=== PATIENT | male | born 1955 | race Caucasian/White ===

== ENCOUNTER 2016-10-17 11:53 | Emergency (ER) | payer OTHER ==
[2016-10-17] MEDS ORDERED: Ondansetron INJ* 2 MG/ML VIAL IV ONE (13:07)
[2016-10-17] MEDS ORDERED: Morphine INJ* 4 MG/ML 1 ML CARPUJECT IV ONE ×2 (13:07→15:16)
--- NOTE | 2016-10-17 13:12 | ED ---
kelly Jeffers Timothy, scribed for Heydi Linda MD on 10/17/16 at 1243 . Head Injury - HPI Summary HPI Summary: Murray Gamino is a 61 yo male [facility]P trauma to the right side of face and head by a dominguez at 1100 this morning, causing 8/10 pain. He was brought in by private vehicle. Pt states he felt a little dizziy with he first stood up - states he thinks he "blacked out" briefly (< 5 sec) but states he remembers the entire event. He has a laceration on his jaw and scalp laceration. Pt reports mild and neck pain. 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 No blood HEENT. He bit his tongue at the time of injury. Pt was able to get up, walk, and get hinmself cleaned up. He states he feels "woozy" and disoriented but feels bettery lying down. He states he felt dizzy and SOB in the waiting room, but these symptoms have spontaneously resolved. His tetanus is UTD. He denies being immunocompromised. He does not smoke tobacco, but drinks EtOH occasionally , not today. He does not use any other drugs. He is allergic to shellfish and seafood, with SOB and tongue swelling. His last meal was approximately 4 hours ago His Hx includes hypothyroidism and HTN, both of which he takes medication for. - History Of Current Complaint Chief Complaint: EDHeadInjury Stated Complaint: CHIN LAC Time Seen by Provider: 10/17/16 13:00 Hx Obtained From: Patient Mechanism Of Injury: Blunt Trauma, Fall From Height Of: - 2 feet Onset/Duration: Started Hours Ago, Still Present Onset of Pain: Immediate Severity Currently: Moderate Severity Initially: Moderate Pain Intensity: 8 Pain Scale Used: 0-10 Numeric Location: Discrete At: - right side Aggravating Factor(s): Movement Associated Signs And Symptoms: LOC (Time In Secs./Mins/Hrs) - 5 seconds, Confusion - "disoriented", Neck Pain, Headache - Allergies/Home Medications Allergies/Adverse Reactions: Allergies Allergy/AdvReac Type Severity Reaction Status Date / Time Shellfish Allergy Allergy Anaphylatic Verified 10/17/16 13:33 Shock Home Medications: Home Medications Levothyroxine TAB* [Synthroid TAB*] 25 mcg PO DAILY 10/17/16 [History Confirmed 10/17/16] Levothyroxine TAB* [Synthroid TAB*] 50 mcg PO DAILY 10/17/16 [History Confirmed 10/17/16] Losartan TAB* [Cozaar TAB*] 100 mg PO DAILY 10/17/16 [History Confirmed 10/17/16 ] PMH/Surg Hx/FS Hx/Imm Hx Endocrine/Hematology History: Reports: Hx Thyroid Disease - hypothyroidism Cardiovascular History: Reports: Hx Hypertension Infectious Disease History: No Infectious Disease History: Denies: Traveled Outside the [place] in Last 30 Days - Family History Known Family History: Positive: Cardiac Disease, Hypertension, Diabetes - Social History Occupation: Employed Full-time Alcohol Use: Occasionally Hx Substance Use: No Substance Use Type: Reports: None Hx Tobacco Use: No Smoking Status (MU): Never Smoked Tobacco Review of Systems Constitutional: Negative Negative: Fever, Chills, Fatigue, Skin Diaphoresis Eyes: Negative Negative: Photophobia, Blurred Vision, Diplopia, Drainage, Erythema Positive: Other - neck pain and laceration, bit tongue. Negative: Epistaxis, Dental Pain, Sore Throat, Ear Ache, Nasal Discharge Cardiovascular: Negative Negative: Palpitations, Chest Pain Positive: Shortness Of Breath. Negative: Cough Positive: Nausea. Negative: Abdominal Pain, Vomiting, Diarrhea Genitourinary: Negative Negative: burning, dysuria, discharge, frequency, flank pain, hematuria, incontinence, pain, urgency Musculoskeletal: Negative Negative: Arthralgia, Myalgia, Decreased ROM, Edema Positive: Other - head and neck laceration. Negative: Rash, Bruising Positive: Headache, Syncope - 5 seconds with trauma. Negative: Weakness, Paresthesia, Numbness, Slurred Speech Psychological: Normal All Other Systems Reviewed And Are Negative: Yes Physical Exam Triage Information Reviewed: Yes Vital Signs On Initial Exam: Initial Vitals Temp Pulse Resp BP Pulse Ox 97.5 F 78 18 165/98 98 10/17/16 12:10 10/17/16 12:10 10/17/16 12:10 10/17/16 12:10 10/17/16 12:10 Vital Signs Reviewed: Yes Appearance: Positive: Well-Appearing, Well-Nourished, Pain Distress Skin: Positive: Warm, Skin Color Reflects Adequate Perfusion, Dry, Other - 5 cm laceration submental along right inferior border of mandible no active bleeding abraison to top of head - quarter size, non-suturable Head/Face: Positive: Normal Head/Face Inspection Eyes: Positive: Normal, EOMI, PADMINI ENT: Positive: Normal ENT inspection, TMs normal - no hemotymp b/l No septal hematoma b/l No blood oropharynx No pain TMJ Neck: Positive: Supple, Nontender, No Lymphadenopathy Respiratory/Lung Sounds: Positive: Clear to Auscultation, Breath Sounds Present. Negative: Wheezes Cardiovascular: Positive: Normal, RRR. Negative: Murmur Abdomen Description: Positive: Nontender, No Organomegaly, Soft Bowel Sounds: Positive: Present Musculoskeletal: Positive: Normal, Strength/ROM Intact, Other - Full AROM x 4 ext No pain c/t/l/s Pt in c collar Neurological: Positive: Normal, Sensory/Motor Intact, Alert, Oriented to Person Place, Time Psychiatric: Positive: Normal AVPU Assessment: Alert - [place] Coma Scale Best Eye Response: 4 - Spontaneous Best Motor Response: 6 - Obeys Commands Best Verbal Response: 5 - Oriented Diagnostics - Vital Signs Vital Signs Temp Pulse Resp BP Pulse Ox 10/17/16 12:10 97.5 F 78 18 165/98 98 - Laboratory Lab Statement: Any lab studies that have been ordered have been reviewed, and results considered in the medical decision making process. - Radiology CXR Xray Interpretation: No Acute Changes - IMPRESSION: No radiographic evidence for traumatic thoracic injury. Radiology Interpretation Completed By: Radiologist - CT Maxillofacial CT Interpretation: Positive (See Comments) - IMPRESSION: LARGE LACERATION INFERIOR TO THE HORIZONTAL RAMUS OF THE MANDIBLE ON THE RIGHT SIDE. NO EVIDENCE FOR HEMATOMA, RADIOPAQUE FOREIGN BODY OR FRACTURE. CT Interpretation Completed By: Radiologist C-Spine CT Interpretation: No Acute Changes - IMPRESSION: No fracture of the cervical spine is noted. Mild degenerative disc disease at C6-C7 is noted. CT Interpretation Completed By: Radiologist Brain CT Interpretation: No Acute Changes - IMPRESSION: NO EVIDENCE FOR ACUTE INTRACRANIAL ABNORMALITY. CT Interpretation Completed By: Radiologist - EKG 1221 Cardiac Rate: NL - 61 BPM EKG Interpretation: NSR @ 61 BPM, no acute ST wave changes Re-Evaluation - Re-Evaluation First Eval Re-Evaluation Time: 15:00 Comment: Reviewed CT results with pt. Reports pain improved with Morphine. No nausea. C collar removed - no pain c/t/l/s. Full AROM. Dr. Thompson for laceration repair. will give ancef. tdap utd. will review CXR Second Eval Re-Evaluation Time: 17:22 Change: Improved Comment: Reviewed Pt condition S/P lac repair. Pt will be discharged with appropriate instruction. Third Eval Re-Evaluation Time: 17:28 Change: Improved - Pt ambulated, ate felt well reviewed s/s infection, wound care wiht pt Pt with non-suturable abraison to lateral, right tonguew - swish/ spit abx discussed narcotics discussed return prn friend at bedside will drive pt home Head Injury Course/Dx Assessment/Plan: Pt struck in head at work with cable laceration to chin, abrasion to scalp. possible brief LOC. C collar precautions. Will CT head, facial bones, c spine. analgesia. antiemetic. reassess - Diagnoses Differential Diagnosis/HQI/PQRI: Concussion Without LOC Provider Diagnoses: Laceration of chin with complication - Physician Notifications Discussed Care Of Patient With: 1323 - Dr. Man (plastics) - Discussed Pt condition, will perform imaging studies - okay for closure in ED - will see in ED, recommend abx. Irrigate copious. 1449 - Dr. Thompson (ED) - discussed Pt condition, agreed to perform lac repair Discharge - Discharge Plan Condition: Stable Disposition: HOME Prescriptions: Amoxicillin/Clavulanate TAB* [Augmentin TAB 875*] 875 mg PO BID #20 tab HYDROcodone/ACETAMIN 5-325 MG* [[place] 5-325 TAB*] 1 - 2 tab PO Q6H PRN #15 tab MDD 8 PRN Reason: Pain Patient Education Materials: Laceration (ED), Facial Laceration (ED) Referrals: Noe Man MD [Medical Doctor] - Additional Instructions: Sutures should come out in 8-10 days. Schedule a follow-up appointment with your primary doctor, return to the emergency department, or contact - plastic surgeon Stay well hydrated. Avoid excess caffeine and all alcohol Okay to alternate ibuprofen (advil, motrin) and tylenol product (tylenol or Norco0) every 3 hours for pain. Take with food. do NOT drive, operate machinery or drink alcohol while taking [place]. This medication is a narcotic and may cause constipation. This is normal Anticipate increased discomfort over the next 1-2 days. This is normal after a trauma call your doctor or return with questions or concerns The documentation as recorded by the kelly smith Timothy accurately reflects the service I personally performed and the decisions made by me, Heydi Linda MD.
--- NOTE | 2016-10-17 14:42 | RAD ---
INDICATION: Head injury. COMPARISON: There are no prior studies available for comparison. TECHNIQUE: Contiguous axial sections of the brain were obtained from the skull base to the vertex without contrast. FINDINGS: The ventricles, cisterns and sulci are within normal limits. No significant focal abnormality or mass effect is seen. There is no evidence for hemorrhage. No significant focal osseous abnormality is seen. The visualized portion of the paranasal sinuses and mastoid air cells appear clear. IMPRESSION: NO EVIDENCE FOR ACUTE INTRACRANIAL ABNORMALITY.
--- NOTE | 2016-10-17 14:45 | RAD ---
Indication: Neck injury. CT of the cervical spine was obtained in the axial plane. Sagittal and coronal reconstructed images were obtained. The skull base and mastoid air cells show no fracture. The vertebral bodies appear normal in height and alignment. No evidence of fracture is noted. No disc protrusion is noted. Mild disc space narrowing at C6-C7 is noted. No fractures noted. IMPRESSION: No fracture of the cervical spine is noted. Mild degenerative disc disease at C6-C7 is noted.
--- NOTE | 2016-10-17 14:51 | RAD ---
INDICATION: Facial trauma. COMPARISON: There are no prior studies available for comparison. TECHNIQUE: Contiguous axial sections of the axial images of the facial bones were obtained and reconstructed in the coronal and sagittal planes. FINDINGS: There is soft tissue swelling and a large soft tissue defect present along the inferior aspect of the horizontal ramus of the mandible on the right side. There is air in the soft tissues consistent with the patient's laceration type injury. No hematoma is seen. No radiopaque foreign body is seen. The mandible appears intact. The [place] of the orbits and maxillary sinuses appear intact. The zygomatic arches appear intact. The nasal bones appear intact. There is moderate to severe deviation of the nasal septum toward the right side. The pterygoid plates appear intact. The paranasal sinuses appear clear. IMPRESSION: LARGE LACERATION INFERIOR TO THE HORIZONTAL RAMUS OF THE MANDIBLE ON THE RIGHT SIDE. NO EVIDENCE FOR HEMATOMA, RADIOPAQUE FOREIGN BODY OR FRACTURE.
[2016-10-17] MEDS ORDERED: ceFAZolin 1 GM in Dextrose (*) 1 GM/50 ML BAG IVPB ONE (15:03)
--- NOTE | 2016-10-17 15:32 | RAD ---
Indication: Trauma. Fall. Comparison: Cervical spine CT of the same date. Technique: Upright AP 1505 hours Report: Clear lungs and pleural spaces. Negative for pneumothorax. Top normal heart size. Unremarkable central pulmonary vasculature and mediastinal contours. No osseous fractures evident. IMPRESSION: No radiographic evidence for traumatic thoracic injury.
--- NOTE | 2016-10-17 16:40 | ED ---
kelly Jeffers Timothy, scribed for Alan Thompson MD on 10/17/16 at 1506 . Progress - Progress Note Progress Note: Murray Gamino is a 61 yo male presenting to [facility] with a under the right side of his chin. A laceration repair procedure will be implemented. Lac is approximately 6cm long extending down to the mandible. Local anesthesia was with 2cc's of 2% lidocaine with epinepherine. Laceration was irrigated with 1000 cc's normal saline. The closure was 3 layer. Closed fascia covering the mandible with 40 chromic, subcutaneous with 40 chromic with a total of 9 sutures. Skin was closed with 5-0 ethilon, 20 sutures Re-Evaluation - Re-Evaluation First Eval Re-Evaluation Time: 15:00 Comment: Reviewed CT results with pt. Reports pain improved with Morphine. No nausea. C collar removed - no pain c/t/l/s. Full AROM. Dr. Thompson for laceration repair. will give ancef. tdap utd. will review CXR Course/Dx - Course Course Of Treatment: After evaluation, laceration repair was deemed necessary and performed. Care will be given back to Dr. Linda. - Diagnoses Provider Diagnoses: Laceration of chin with complication - Provider Notifications Discussed Care Of Patient With: 1323 - Dr. Man (plastics) - Discussed Pt condition, will perform imaging studies The documentation as recorded by the staceyibekelly Timothy accurately reflects the service I personally performed and the decisions made by me, Alan Thompson MD.
== END 2016-10-17 17:36 | disposition home or self-care (01) ==
LOC: ED 11:53
DX: S01.81XA Laceration without foreign body of other part of head, initial encounter (principal); E03.9 Hypothyroidism, unspecified; I10 Essential (primary) hypertension; W31.89XA Contact with other specified machinery, initial encounter; Y92.9 Unspecified place or not applicable
CPT/HCPCS: 13132; 70450; 70486; 71010; 72125; 93005; 96374; 96375; 96376; 99283; J0690; J2270; J2405